=== PATIENT | female | born 1980 | race Caucasian/White ===

== ENCOUNTER 2021-10-27 22:18 | Emergency (ER) | payer MEDICAID ==
[~2021-10-27] VITALS: Ht 162.6 cm; Wt 119.8 kg
[2021-10-28 04:02] LABS: ANION GAP 12 mmol/L (7-16); BUN 15 mg/dL (7-18); CALCIUM 8.5 mg/dL (8.5-10.1); CHLORIDE 106 mmol/L (98-107); CO2 24 mmol/L (21-32); CREATININE 0.7 mg/dL (0.6-1.0); GLUCOSE 87 mg/dL (74-106); POTASSIUM 4.1 mmol/L (3.5-5.1); SODIUM 142 mmol/L (136-145)
[2021-10-28 04:06] LABS: ABSOLUTE NEUTROPHILS 4.7 thou/uL (1.4-8.2); BASOPHILS 0.4 % (0.0-2.0); EOSINOPHILS 4.5 % (0.0-3.0); HEMATOCRIT 40.1 % (37.0-47.0); HEMOGLOBIN 13.5 gm/dL (12.0-15.0); LYMPHOCYTES 28.3 % (24.0-44.0); MCH 29.6 pg (26.0-34.0); MCHC 33.6 g/dL (28.0-37.0); MCV 88.2 fL (80.0-100.0); PLATELET COUNT 209 thou/uL (150-400); POLYS 54.8 % (36.0-66.0); RBC 4.55 mil/uL (4.20-5.00); RDW 14.1 % (10.5-14.5); WBC 8.6 thou/uL (4.0-11.0)
[2021-10-28 04:11] LABS: ALBUMIN 3.5 g/dL (3.4-5.0); SGOT 16 U/L (15-37); SGPT 28 U/L (14-59); TOTAL BILIRUBIN 0.4 mg/dL (0.2-1.0); TOTAL PROTEIN 6.9 g/dL (6.4-8.2)
[2021-10-28 05:28] VITALS: BP 174/93
[2021-10-29] MEDS ORDERED: HYDROCORT 2.5%-30 GM TOP (07:22)
--- NOTE | 2021-10-29 07:27 | EKG ---
[place] [address] [facility] [place] [address] ELECTROCARDIOGRAM REPORT Name: DANIELLE CLEMENTE [id number] Admission: 10/27/21 Attend Phys: Discharge: 10/28/21 Date of : 80 Report #: [id number] [facility] ED Test Date: 2021-10-27 Test Time: 23:40:10 Pat Name: DANIELLE CLEMENTE Department: Room: Gender: F Rv Mechanic: ELDA : 1980 Requested By: Ailyn Guo Order Number: [id number] MD: Nura Novoa Measurements Intervals [place] Rate: 83 P: 41 [place]: 141 QRS: -2 QRSD: 92 T: 15 QT: 390 QTc: 459 Interpretive Statements Sinus rhythm Low voltage, precordial leads No previous ECG available for comparison Electronically Signed On 10-29-2021 7:26:59 [employer]OR[employer] EDIT[employer] by Nura Novoa [email or web address] <ELECTRONICALLY SIGNED> By: Nura Novoa MD, [facility] 10/29/21 0726 2340 2340 Nura Novoa MD, FACC /EPI
== END 2021-10-28 05:31 | disposition home or self-care (01) ==
LOC: ER 22:18
PROVIDERS: Emergency Medicine
DX: I25.10 Atherosclerotic heart disease of native coronary artery without angina pectoris (principal); R07.89 Other chest pain; J45.909 Unspecified asthma, uncomplicated; E78.00 Pure hypercholesterolemia, unspecified; I10 Essential (primary) hypertension; Z90.89 Acquired absence of other organs; Z88.1 Allergy status to other antibiotic agents; Z88.0 Allergy status to penicillin; Z88.8 Allergy status to other drugs, medicaments and biological substances; Z91.040 Latex allergy status

== ENCOUNTER 2021-10-29 06:20 | Emergency (ER) | payer MEDICAID ==
[~2021-10-29] VITALS: Ht 162.6 cm; Wt 119.8 kg
[2021-10-29 06:22] VITALS: BP 131/71
[2021-10-29] MEDS ORDERED: HYDROCORT 2.5%-30 GM TOP (07:22)
== END 2021-10-29 07:54 | disposition home or self-care (01) ==
LOC: ER 06:20
DX: L30.8 Other specified dermatitis (principal); J45.909 Unspecified asthma, uncomplicated; E78.00 Pure hypercholesterolemia, unspecified; I10 Essential (primary) hypertension; Z90.89 Acquired absence of other organs; Z88.1 Allergy status to other antibiotic agents; Z88.6 Allergy status to analgesic agent; Z88.0 Allergy status to penicillin; Z91.040 Latex allergy status